=== PATIENT | male | born 2000 | race Caucasian/White ===

== ENCOUNTER → 2023-08-26 13:37 | Outpatient (BNVA) | payer SELFPAY | PROVIDERS: PCP Nurse Practitioner; Visit Provider Nurse Practitioner Family | DX: R39.9 Unspecified symptoms and signs involving the genitourinary system (principal); N50.811 Right testicular pain; X58.XXXA Exposure to other specified factors, initial encounter | CPT/HCPCS: 81000 ==

== ENCOUNTER 2023-09-08 14:19 | Outpatient (CLI) | payer SELFPAY ==
--- NOTE | 2023-09-08 14:30 | US_ITS ---
WS: [id number] TESTICULAR ULTRASOUND HISTORY: N50.811 - Right testicular pain COMPARISON: None available. TECHNIQUE: Real-time and color Doppler imaging or utilized to perform a testicular ultrasound. Right testicle: 3.5 cm x 2.5 cm x 1.9 cm. Normal size and echogenicity. No mass or torsion. Normal color Doppler is present throughout. Systolic and diastolic velocities are both present. No significant hydrocele. Right epididymis: Normal epididymis with no increased vascularity. Left testicle: 3.5 cm x 2.9 cm x 1.9 cm. Normal size and echogenicity. No mass or torsion. Normal color Doppler is present throughout. Systolic and diastolic velocities are both present. No significant hydrocele. Left epididymis: Normal epididymis with no increased vascularity. IMPRESSION: NORMAL TESTICULAR ULTRASOUND.
== END 2023-09-08 14:20 | disposition home or self-care (01) ==
LOC: RAD 14:19
PROVIDERS: PCP Nurse Practitioner; Visit Provider Nurse Practitioner Family
DX: N50.811 Right testicular pain (principal)
CPT/HCPCS: 76870

== ENCOUNTER → 2023-11-14 16:06 | Outpatient (BNVA) | payer SELFPAY | PROVIDERS: PCP Nurse Practitioner; Visit Provider Emergency Medicine | DX: R39.9 Unspecified symptoms and signs involving the genitourinary system (principal); R30.0 Dysuria | CPT/HCPCS: 81000; 87086 ==

== ENCOUNTER → 2023-11-20 09:54 | Outpatient (BNVA) | payer SELFPAY | PROVIDERS: PCP Nurse Practitioner; Referring Provider Emergency Medicine; Visit Provider Family Medicine | DX: R39.9 Unspecified symptoms and signs involving the genitourinary system (principal) | CPT/HCPCS: 87491; 87591 ==